=== PATIENT | male | born 1980 | race Caucasian/White ===

== ENCOUNTER 2021-10-06 13:31 | Outpatient (CLI) | payer OTHER, SELFPAY | END 2021-10-06 13:32 | disposition home or self-care (01) | LOC: SCSMRI 13:31 | PROVIDERS: ATTEND Physical Medicine & Rehabilitation | DX: M54.2 Cervicalgia (principal); M79.601 Pain in right arm; M50.221 Other cervical disc displacement at C4-C5 level; M50.322 Other cervical disc degeneration at C5-C6 level | CPT/HCPCS: 72141 ==

== ENCOUNTER 2022-05-03 06:24 | Day surgery (SDC) | payer BC ==
[2022-05-01 12:09] VITALS: BMI 17.9
[2022-05-03] MEDS ORDERED: fentaNYL PF 100 MCG/2 ML SYRINGE ONE (06:51)
[2022-05-03] MEDS ORDERED: Thrombin 5000 UNITS/5 ML VIAL ONE (07:05)
[2022-05-03] MEDS ORDERED: CEFAZOLIN 2 GM VIAL ONE ×2 (07:12→10:59)
[2022-05-03] MEDS ORDERED: Sodium Chloride 0.9% 100 ML ONE ×2 (07:12→10:59)
[2022-05-03] MEDS ORDERED: Midazolam HCl 2 mg/2 ml Vial ONE (07:30)
[2022-05-03] MEDS ORDERED: Ondansetron PF 4 MG/2 ML Vial ONE (07:59)
[2022-05-03] MEDS ORDERED: Rocuronium Bromide 10 MG/ML (10ML VIAL) ONE (07:59)
[2022-05-03] MEDS ORDERED: Lidocaine 1% PF 5 ML VIAL ONE (07:59)
[2022-05-03] MEDS ORDERED: PROPOFOL 200 MG/20 ML VIAL ONE (07:59)
[2022-05-03] MEDS ORDERED: Dexamethasone 20 MG/5 ML VIAL ONE (07:59)
[2022-05-03] MEDS ORDERED: NEOSTIGMINE 3 MG/3 ML SYR 3 MG/3 ML SYRINGE ONE (07:59)
[2022-05-03] MEDS ORDERED: Ketorolac Tromethamine 30 MG/ML VIAL ONE (07:59)
[2022-05-03] MEDS ORDERED: Glycopyrrolate 0.2 MG/ML 5 ML SYRINGE ONE (07:59)
[2022-05-03] MEDS ORDERED: Tamsulosin HCl 0.4 MG CAP ONE (09:32)
[2022-05-03] MEDS ORDERED: Fentanyl 100 MCG/2 ML VIAL ONE (09:53)
== END 2022-05-03 11:18 | disposition home or self-care (01) ==
LOC: SDC 06:24
PROVIDERS: ATTEND Neurological Surgery
PROC: 0RG10A0 Fusion of Cervical Vertebral Joint with Interbody Fusion Device, Anterior Approach, Anterior Column, Open Approach (ICD-10-PCS; principal; 2022-05-03)
DX: M54.12 Radiculopathy, cervical region (principal); M25.78 Osteophyte, vertebrae; M48.02 Spinal stenosis, cervical region; M19.90 Unspecified osteoarthritis, unspecified site; J45.909 Unspecified asthma, uncomplicated; G89.29 Other chronic pain; F17.200 Nicotine dependence, unspecified, uncomplicated; Z98.890 Other specified postprocedural states; Z79.1 Long term (current) use of non-steroidal anti-inflammatories (NSAID); Z79.899 Other long term (current) drug therapy; Z88.8 Allergy status to other drugs, medicaments and biological substances
CPT/HCPCS: C1713; C1889; J1100; J1885; J2250; J2405; J2704; J3010; J3490

== ENCOUNTER 2025-02-27 08:37 | Outpatient (CLI) | payer OTHER | END 2025-02-27 08:38 | disposition home or self-care (01) | LOC: CT 08:37 | PROVIDERS: ATTEND Registered Nurse | DX: M47.812 Spondylosis without myelopathy or radiculopathy, cervical region (principal); M48.03 Spinal stenosis, cervicothoracic region; M47.813 Spondylosis without myelopathy or radiculopathy, cervicothoracic region; M50.322 Other cervical disc degeneration at C5-C6 level; M50.323 Other cervical disc degeneration at C6-C7 level; M50.33 Other cervical disc degeneration, cervicothoracic region; Z98.1 Arthrodesis status; Z98.890 Other specified postprocedural states | CPT/HCPCS: 72125 ==